=== PATIENT | female | born 1990 | race Caucasian/White ===

== ENCOUNTER 2021-06-11 08:10 | Inpatient (IN) ==
[2021-06-11] MEDS ORDERED: *HR* Nalbuphine 10 MG/ML AMPUL IV PRN (08:25)
[2021-06-11] MEDS ORDERED: Metoclopramide 10 MG/2 ML VIAL IVP PRN (08:25)
[2021-06-11] MEDS ORDERED: miSOPROStoL 25 MCG TABLET PO PRN (08:25)
[2021-06-11] MEDS ORDERED: Lidocaine 1% 20 ML MDV INFILT PRN (08:25)
[2021-06-11] MEDS ORDERED: Ondansetron 4 MG/2 ML VIAL IVP PRN (08:25)
[2021-06-11] MEDS ORDERED: Azithromycin 500 MG in 0.9 % Sodium Chloride 250 ML IVPB PRN (08:25)
[2021-06-11] MEDS ORDERED: Famotidine 20 MG/2 ML VIAL IVP PRN (08:25)
[2021-06-11] MEDS ORDERED: Naloxone 0.4 MG/ML INJ IVP PRN (08:25)
[2021-06-11] MEDS ORDERED: Oxytocin 20 units/ LR 1000 mL 20 UNIT/1,000 ML BAG IVC SCH ×2 (08:30→19:02)
[2021-06-11] MEDS ORDERED: Ringers Solution, Lactated 1,000 ML IVC SCH (08:30)
[2021-06-11] MEDS ORDERED: Lidocaine -MPF 2% 5 ML VIAL ONE (08:45)
[2021-06-11 09:26] LABS: Basophils # 0.1 K/mcL (0.0-0.2); Basophils % 0.5 %; Eosinophils # 0.2 K/mcL (0.0-0.6); Eosinophils % 1.4 %; Hematocrit 34.5 % (35.3-44.9); Hemoglobin 11.5 g/dL (11.5-15.4); Immature Granulocytes % 0.3 % (0-4); Lymphocytes # 3.8 K/mcL (0.6-4.6); Lymphocytes % 32.6 %; Mean Corpuscular HGB Conc 33.3 g/dL (31.6-35.5); Mean Corpuscular Hemoglobin 30.9 pg (28.0-33.3); Mean Corpuscular Volume 92.7 fL (83.0-100.0); Mean Platelet Volume 10.7 fL (9.4-12.4); Monocytes # 0.6 K/mcL (0.0-1.3); Monocytes % 4.9 %; Neutrophils # 7.1 K/mcL (1.6-8.9); Platelet Count 339 K/mcL (140-400); Red Blood Count 3.72 M/mcL (3.82-4.97); Red Cell Distribution Width 13.2 % (11.5-14.5); Segmented Neutrophils % 60.3 %; White Blood Count 11.8 K/mcL (4.3-11.1)
[2021-06-11 09:31] LABS: Amphetamine Screen,Urine Negative ng/mL (Cutoff=1000); Barbiturate Screen,Urine Negative ng/mL (Cutoff=200); Benzodiazepines Screen,Urine Negative ng/mL (Cutoff=200); Cannabinoid Screen,Urine Negative ng/mL (Cutoff = 50); Cocaine Screen,Urine Negative ng/mL (Cutoff= 300); Opiate Screen,Urine Negative ng/mL (Cutoff=300); Phencyclidine Screen,Urine Negative ng/mL (Cutoff=25)
[2021-06-11 09:57] LABS: Influenza A PCR Negative (Negative); Influenza B PCR Negative (Negative); Resp. Syncytial Virus PCR Negative (Negative)
[2021-06-11 09:58] LABS: SARS-CoV-2 by PCR (In House) Negative (Negative)
[2021-06-11] MEDS ORDERED: *HR* FentaNYL (PF) 100 MCG/2 ML VIAL EP ONE (10:28)
[2021-06-11] MEDS ORDERED: Ropivacaine/PF 0.2% 20 ML VIAL EP ONE (10:28)
[2021-06-11] MEDS ORDERED: EPHEDrine 50 MG/ML VIAL IVP PRN (10:28)
[2021-06-11] MEDS ORDERED: Epidural Premix (fent/bupiv) 110 ML EP SCH (10:30)
[2021-06-11] MEDS ORDERED: *HR* FentaNYL (PF) 100 MCG/2 ML VIAL ONE (13:53)
[2021-06-11] MEDS ORDERED: Ropivacaine/PF 0.2% 20 ML VIAL ONE (13:53)
[2021-06-11] MEDS ORDERED: Oxytocin 20 units/ LR 1000 mL 20 UNIT/1,000 ML BAG IVC ONE ×2 (19:02→19:08)
[2021-06-11] MEDS ORDERED: Benzocaine/Menthol 56 GM AEROSOL SPRAY TP PRN (19:02)
[2021-06-11] MEDS ORDERED: Ondansetron ODT 4 MG TAB.RAPDIS SL PRN (19:02)
[2021-06-11] MEDS: Acetaminophen 325 MG TABLET PO SCH (21:34)
[2021-06-11] MEDS: Ibuprofen 600 MG TABLET PO SCH (21:34)
[2021-06-12] MEDS: Ibuprofen 600 MG TABLET PO SCH ×2 (04:24→16:42)
[2021-06-12] MEDS: Acetaminophen 325 MG TABLET PO SCH ×2 (04:24→16:42)
[2021-06-12 08:02] VITALS: BP 102/56; PULSE 62; TEMP 98.2; O2SAT 97
[2021-06-12] MEDS ORDERED: Prenatal Vit/FA 1 EACH TABLET PO SCH (09:00)
== END 2021-06-12 18:27 | disposition home or self-care (01) | DRG 560 ==
LOC: 1NENULAB 08:10 → 1NENUOBS 20:51
PROVIDERS: ADMIT Advanced Practice Midwife; ATTEND Advanced Practice Midwife